=== PATIENT | male | born 1950 | race Caucasian/White ===

== ENCOUNTER 2018-12-26 06:19 | Day surgery (SDC) | payer MEDICARE, OTHER ==
[~2018-12-26] VITALS: Ht 182.9 cm; Wt 122.5 kg
[~2018-12-26 06:19] MED LIST: ASPIR-LOW81 MG PO; LISINOPRIL40 MG PO; NORCO 5-325 TA1 EACH PO; VITAMIN B125000 MCG PO; VITAMIN D31000 UNIT PO
--- NOTE | 2018-12-26 08:20 | NUR ---
12/26/18 0820 Lynette Liao 0815 PATIENT ARRIVES TO PACU AWAKE, BUT DROWSY. DENIES PAIN OR NAUSEA. RESP EVEN AND UNLABORED, ROOM AIR SATS >94%.
--- NOTE | 2018-12-26 08:48 | NUR ---
PT HAD BEEN TAKEN FOR HIS SCOPE. CONNECTED WITH HIS -SHE SEEMED COMPOSED AND RELAXED WORKING ON HER TABLET. PT HAS HAD NUMEROUS SCOPES, VERY FAMILIAR WITH ROUTINE. SHE THANKED ME FOR CHECKING. WILL FOLLOW NEEDED
--- NOTE | 2018-12-26 18:54 | OR ---
[facility] [address] [place], [place] [address] Signed DATE OF OPERATION: 12/26/2018 SURGEON: Nicci Valiente MD PREOPERATIVE DIAGNOSIS: History of hyperplastic polyp, distant past. POSTOPERATIVE DIAGNOSES: 1. Diverticulosis. 2. Small polyp at 40 cm (excised). PROCEDURE PERFORMED: Total colonoscopy to cecum with cold morcellation polypectomy x1. ANESTHESIA: Intravenous sedation, fentanyl 100 mcg, Versed 6 mg. INDICATION: This 68-year-old white man is a patient of Dr. Buitrago and underwent colonoscopy by wi 12 years ago. At which time, he was found to have a hyperplastic polyp. He has had no recent bleeding, diarrhea, or constipation. He has no family history of colon cancer. He was admitted at this time to undergo colonoscopy for surveillance understanding the risks of bleeding, infection, and perforation. FINDINGS: The prep was good. Complete colonoscopy was undertaken to the cecum without question. He had numerous diverticula particularly of the sigmoid colon. There was one small polyp at 40 cm in the left colon that was rather subtle, but clearly adenomatous and was excised with cold morcellation technique completely. There were no other findings of concern. DESCRIPTION OF PROCEDURE: The patient was brought to the endoscopy suite and placed in lateral decubitus position given intravenous sedation to the point of slurred speech and nystagmus. Digital rectal examination was normal. An Olympus video colonoscope was passed in the rectum and manipulated throughout the colon noting diverticulosis of the sigmoid and left colon. Scope was ultimately advanced to the cecum without problem. The ileocecal valve and appendiceal orifice were normal. Scope was withdrawn from that point and examination undertaken. Careful inspection upon withdrawal of scope showed no sign of abnormality until approximately 40 cm from the anal verge where an adenomatous appearing polyp was Electronically Signed By: NICCI VALIENTE MD 12/26/18 1854 PATIENT NAME: SYDNI ANDRADE OPERATIVE REPORT DATE OF : 50 REPORT #: [id number] PHYSICIAN: NICCI VALIENTE MD PCP: VICKEY BUITRAGO MD REPORT IS CONFIDENTIAL AND NOT TO BE RELEASED WITHOUT AUTHORIZATION [facility] [address] [facility] [place], [place] [address] Signed noted. It was rather subtle. Narrow band imaging better defined the polyp. Using cold morcellation technique, complete excision of the polyp was accomplished. Scope was further withdrawn and diverticula once again noted in the sigmoid area. Retroflexed view of the rectum was normal. Scope was removed and the patient was taken to recovery room in good condition. CONCLUDING DIAGNOSES: 1. Polyps x1. 2. Diverticulosis. PLAN: Recommend repeat colonoscopy in 5 years, sooner if clinically indicated. We will review his pathology report of course. MD RICKEY Rowley/HONEY /[id number] cc: Vickey Buitrago MD Copies: VICKEY BUITRAGO MD ~ Electronically Signed By: NICCI VALIENTE MD 12/26/18 1854 PATIENT NAME: SYDNI ANDRADE OPERATIVE REPORT DATE OF : 50 REPORT #: [id number] PHYSICIAN: NICCI VALIENTE MD PCP: VICKEY BUITRAGO MD REPORT IS CONFIDENTIAL AND NOT TO BE RELEASED WITHOUT AUTHORIZATION
--- NOTE | 2018-12-29 12:56 | PATH ---
[facility] [address] [place], [place] [address] Signed SPECIMEN(S): A COLON POLYP AT 40 CM SPECIMEN SOURCE: A. COLON POLYP AT 40 CM CLINICAL HISTORY: History of polyps. Post-op: Polyp x 1, diverticulosis. MICROSCOPIC DESCRIPTION: Histologic sections of all submitted blocks are examined by light microscopy. These findings, together with the gross examination, support the pathologic diagnosis. FINAL PATHOLOGIC DIAGNOSIS: Mucosa, colon at 40 cm, biopsy: - Tubular adenoma. LJA:cml:C2NR GROSS DESCRIPTION: The specimen, labeled "RS, colon polyp at 40 cm," is received in formalin and consists of one pink-coronel soft tissue fragments that measure 0.3 cm in greatest dimension. The specimen is entirely submitted in cassette (A1). JS (under the direct supervision of a pathologist) The Gross Description was prepared using a voice recognition system. The report was reviewed for accuracy; however, sound-alike word errors, addition and/or deletions may occur. If there is any question about this report, please contact Client Services. PERFORMING LABORATORY: The technical component was performed by [facility], [address] [place] [address] (Territory Sales Representative: Mary Jo Carballo MD; CLIA# [id number]). [facility] [address] [address] (Territory Sales Representative: Fili Kemp MD; CLIA# [id number]). Diagnostician: Fili Kemp MD Pathologist Electronically Signed 12/29/2018 PATIENT NAME: SYDNI ANDRADE PATHOLOGY DATE OF : 50 REPORT #: [id number] PHYSICIAN: HANDY PATHOLOGY PCP: VICKEY BREEN MD REPORT IS CONFIDENTIAL AND NOT TO BE RELEASED WITHOUT AUTHORIZATION [address] [place], [place] [address] Signed Copies: ~ PATIENT NAME: SYDNI ANDRADE PATHOLOGY DATE OF : 50 REPORT #: [id number] PHYSICIAN: HAND[facility] PATHOLOGY PCP: VICKEY BREEN MD REPORT IS CONFIDENTIAL AND NOT TO BE RELEASED WITHOUT AUTHORIZATION
== END 2018-12-26 08:35 | disposition home or self-care (01) ==
LOC: OPS 06:19 → DS 06:19 → OPS 06:45
PROVIDERS: Surgery
PROC: 0DBE8ZZ Excision of Large Intestine, Via Natural or Artificial Opening Endoscopic (ICD-10-PCS; principal; 2018-12-26 06:45)
DX: Z12.11 Encounter for screening for malignant neoplasm of colon (principal); D12.6 Benign neoplasm of colon, unspecified; K57.30 Diverticulosis of large intestine without perforation or abscess without bleeding; I10 Essential (primary) hypertension; Z86.010 Personal history of colon polyps; Z88.2 Allergy status to sulfonamides
CPT/HCPCS: 99153; G0500; J2250; J3010; J7120